=== PATIENT | female | born 1950 | race Hispanic/Latino ===

== ENCOUNTER 2016-07-27 19:43 | Emergency (ER) | payer MEDICARE, OTHER ==
--- NOTE | 2016-07-27 20:35 | RAD ---
PORTABLE CHEST: 07/27/16 HISTORY: Chest pain. The lung hernandez appear clear. Heart and mediastinum appear unremarkable. Vasculature is normal. IMPRESSION: No acute findings. POS: [facility]
[2016-07-27 20:54] LABS: Chloride 111 mmol/L (98-107)
[2016-07-27 21:05] LABS: Troponin I Less than 0.010 ng/mL (< 0.028)
[2016-07-27 21:07] LABS: ALT (SGPT) 42 U/L (0-55); AST (SGOT) 38 U/L (5-34); Alkaline Phosphatase 55 U/L (40-150); BUN (Urea Nitrogen) 13 mg/dL (9.8-20.1); Bilirubin, Total 0.5 mg/dL (0.2-1.2); CK (CPK) 54 U/L (29-168); Calc. Creatinine Clearance 0 mL/min (70-130); Calcium 9.3 mg/dL (7.8-10.44); Carbon Dioxide 23 mmol/L (23-31); Estimated GFR-MDRD 76; Globulin 2.9 g/dL (2.4-3.5); Protein, Total 6.7 g/dL (5.8-8.1)
[2016-07-27 21:10] LABS: Anion Gap 12 mmol/L (10-20)
[2016-07-27 21:12] LABS: #Eosinphils 0.4 thou/uL (0.0-0.7); #Lymphocytes 1.5 thou/uL (1.20-3.40); #Monocytes 0.4 thou/uL (0.11-0.59); #Neutrophils 1.2 thou/uL (1.40-6.50); %Eosinophils 9.9 % (0.0-10.0); %Lymphocytes 43.5 % (21.0-51.0); %Monocytes 10.5 % (0.0-10.0); Mean Platelet Volume 7.4 fL (7.4-10.4); Red Blood Cell (RBC) Count 3.95 mill/uL (4.20-5.40); White Blood Cell (WBC) Count 3.5 thou/uL (4.8-10.8)
== END 2016-07-27 22:16 | disposition short-term general hospital (02) ==
LOC: NAV ERS 19:43
DX: M79.662 Pain in left lower leg (principal); M79.661 Pain in right lower leg; R07.9 Chest pain, unspecified; R06.00 Dyspnea, unspecified; E78.5 Hyperlipidemia, unspecified; E78.00 Pure hypercholesterolemia, unspecified; I10 Essential (primary) hypertension; Z79.899 Other long term (current) drug therapy
CPT/HCPCS: 71010; 80053; 82553; 84484; 85025; 85379; 93005; 94760

== ENCOUNTER 2016-09-18 14:18 | Emergency (ER) | payer MEDICARE, OTHER ==
--- NOTE | 2016-09-18 15:25 | RAD ---
RIGHT HAND THREE VIEWS: History: Fell, injury to right hand. FINDINGS: Carpals appear intact. There is degenerative change at the first carpal metacarpal joint. The metaca rpals and phalanges appear intact. IMPRESSION: No acute fracture identified. POS: [facility]
--- NOTE | 2016-09-18 15:32 | RAD ---
RIGHT KNEE FOUR VIEWS: History: Slipped and fell with injury to right knee. Comparison: 09-24-14 FINDINGS: There are mild degenerative changes noted with minimal spurring from the condyles and patella. No fr acture or acute abnormality. No evidence of joint effusion. IMPRESSION: Mild degenerative changes are seen without significant change from the prior study. POS: [facility]
[2016-09-18] MEDS ORDERED: Ibuprofen 800 MG TAB ONE (15:35)
== END 2016-09-18 15:40 | disposition home or self-care (01) ==
LOC: NAV ERS 14:18
DX: S60.041A Contusion of right ring finger without damage to nail, initial encounter (principal); S80.01XA Contusion of right knee, initial encounter; I10 Essential (primary) hypertension; F41.9 Anxiety disorder, unspecified; Z87.891 Personal history of nicotine dependence; Z79.899 Other long term (current) drug therapy; E78.5 Hyperlipidemia, unspecified; W17.89XA Other fall from one level to another, initial encounter

== ENCOUNTER 2016-11-17 08:24 | Emergency (ER) | payer MEDICARE, OTHER ==
[2016-11-17] MEDS ORDERED: Acetaminophen 500 MG TAB ONE (08:52)
--- NOTE | 2016-11-17 09:40 | RAD ---
THREE VIEWS OF THE RIGHT HAND: DATE: 11/17/16. HISTORY: Pain in 3rd and 4th metacarpals. The patient caught hand in a mixer. COMPARISON: 09/18/16. There is no evidence of a fracture or dislocation. 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 There is minimal osteoarthritis involving the interphalangeal joints. IMPRESSION: No acute osseous abnormality of the right hand. POS: [facility]
== END 2016-11-17 09:22 | disposition home or self-care (01) ==
LOC: NAV ERS 08:24
DX: S61.411A Laceration without foreign body of right hand, initial encounter (principal); E78.5 Hyperlipidemia, unspecified; I10 Essential (primary) hypertension; F41.9 Anxiety disorder, unspecified; Z87.891 Personal history of nicotine dependence; Z79.899 Other long term (current) drug therapy; W45.8XXA Other foreign body or object entering through skin, initial encounter

== ENCOUNTER 2017-02-21 14:14 | Outpatient (CLI) | payer MEDICARE, OTHER ==
[2017-02-21 21:07] LABS: Bilirubin Negative (Negative); Blood, Urine Small (Negative); Clarity Clear (Clear); Glucose, Urine (Dipstick) Negative (Negative); Leukocyte Negative (Negative); Nitrite Negative (Negative); Protein, Urine (Dipstick) Negative (Neg-Trace); Urobilinogen 0.2 mg/dL (0.2-1.0); pH, Urine 6.5 (5.0-9.0)
[2017-02-21 22:02] LABS: RBC/HPF 0-3 HPF (0-3); Squamous Epithelial 0-3 HPF (0-3)
== END 2017-02-21 14:15 | disposition home or self-care (01) ==
LOC: NAVSJIPCSP 14:14
PROVIDERS: ATTEND Urology
DX: R31.9 Hematuria, unspecified (principal)
CPT/HCPCS: 81001; 87086

== ENCOUNTER 2017-02-22 16:24 | Emergency (ER) | payer MEDICARE, OTHER | END 2017-02-22 17:05 | disposition home or self-care (01) | LOC: NAV ERS 16:24 | DX: J20.9 Acute bronchitis, unspecified (principal); E78.5 Hyperlipidemia, unspecified; I10 Essential (primary) hypertension; F41.9 Anxiety disorder, unspecified; Z87.891 Personal history of nicotine dependence; Z79.899 Other long term (current) drug therapy | CPT/HCPCS: 93005 ==

== ENCOUNTER 2018-09-30 10:42 | Outpatient (CLI) | payer MEDICARE, OTHER ==
--- NOTE | 2018-09-30 10:57 | RAD ---
Exam: Chest 2 views HISTORY:COPD Comparison: None FINDINGS: Lungs: No masses or consolidation. Cardiac silhouette: Normal size Pulmonary vessels: Normal Pleural Spaces: Clear Pneumothorax: None Osseous abnormalities: None of acuity. IMPRESSION: No focal consolidation.
== END 2018-09-30 10:43 | disposition home or self-care (01) ==
LOC: NAV RAD 10:42
PROVIDERS: ATTEND Family Medicine
DX: J44.1 Chronic obstructive pulmonary disease with (acute) exacerbation (principal)
CPT/HCPCS: 71046

== ENCOUNTER 2018-10-04 02:29 | Emergency (ER) | payer MEDICARE, OTHER ==
[2018-10-04] MEDS ORDERED: Acetaminophen/Codeine 30-300mg Tablet ONE (02:51)
--- NOTE | 2018-10-04 08:28 | RAD ---
CHEST 2 VIEWS: INDICATION: Coughing and wheezing. COMPARISON: Prior days' exam dated 09/30/2018. FINDINGS: Lungs are clear. Heart size is normal. Osseous structures are unchanged. Mild wedging involving a mid to lower thoracic vertebra is stable. IMPRESSION: No acute cardiopulmonary abnormality. POS: [facility]
== END 2018-10-04 03:48 | disposition home or self-care (01) ==
LOC: NAV ERS 02:29
DX: J20.9 Acute bronchitis, unspecified (principal); E78.5 Hyperlipidemia, unspecified; M06.9 Rheumatoid arthritis, unspecified; F41.9 Anxiety disorder, unspecified; F32.9 Major depressive disorder, single episode, unspecified; Z79.899 Other long term (current) drug therapy; Z87.891 Personal history of nicotine dependence
CPT/HCPCS: 71046; 94640; 94760; J7620

== ENCOUNTER 2019-11-27 10:48 | Outpatient (CLI) | payer MEDICARE, OTHER ==
--- NOTE | 2019-11-27 12:28 | RAD ---
CERVICAL SPINE 7 VIEWS: Date: 11/27/2019 HISTORY: Neck pain. FINDINGS/IMPRESSION: Multilevel degenerative changes are present. No fracture, subluxation, or bony destruction is seen. T here is 2 mm retrolisthesis of C4 over C5 that is noted on the neutral and extension images. POS: [facility]
== END 2019-11-27 10:49 | disposition home or self-care (01) ==
LOC: NAV RAD 10:48
PROVIDERS: ATTEND Physician Assistant
DX: M54.2 Cervicalgia (principal); M47.812 Spondylosis without myelopathy or radiculopathy, cervical region; M43.12 Spondylolisthesis, cervical region
CPT/HCPCS: 72052

== ENCOUNTER 2021-02-11 14:37 | Outpatient (CLI) | payer MEDICARE, OTHER | END 2021-02-11 14:38 | disposition home or self-care (01) | LOC: NAV RAD 14:37 | PROVIDERS: ATTEND Internal Medicine Rheumatology | DX: M54.2 Cervicalgia (principal); M47.812 Spondylosis without myelopathy or radiculopathy, cervical region | CPT/HCPCS: 72052 ==

== ENCOUNTER 2021-04-11 14:58 | Emergency (ER) | payer MEDICARE, OTHER ==
[2021-04-11] MEDS ORDERED: Ketorolac Tromethamine 30 MG/ML VIAL ONE (15:31)
== END 2021-04-11 15:45 | disposition home or self-care (01) ==
LOC: NAV ERS 14:58
DX: M54.50 Low back pain, unspecified (principal); E78.5 Hyperlipidemia, unspecified; M06.9 Rheumatoid arthritis, unspecified; Z87.891 Personal history of nicotine dependence; J43.9 Emphysema, unspecified; I10 Essential (primary) hypertension; Z79.899 Other long term (current) drug therapy
CPT/HCPCS: 96372; 99283; J1885

== ENCOUNTER 2021-04-28 11:57 | Emergency (ER) | payer MEDICARE, OTHER ==
[2021-04-28] MEDS ORDERED: Aspirin Chewable 81 MG TAB ONE (12:27)
[2021-04-28] MEDS ORDERED: Nitroglycerin 2% Ointment 1 INCH/1 GM Packet ONE (12:27)
[2021-04-28 12:30] LABS: #Basophils 0.1 thou/uL (0.0-0.2); #Eosinphils 0.2 thou/uL (0.0-0.7); #Lymphocytes 1.8 thou/uL (1.20-3.40); #Monocytes 0.9 thou/uL (0.11-0.59); #Neutrophils 6.3 thou/uL (1.40-6.50); %Basophils 0.7 % (0.0-1.0); %Eosinophils 2.7 % (0.0-10.0); %Lymphocytes 19.4 % (21.0-51.0); %Monocytes 9.3 % (0.0-10.0); %Neutrophils 67.9 % (42.0-75.0); Hemoglobin 12.6 g/dL (12.0-16.0); Mean Corpuscular Hemoglobin 30.5 pg (27.0-31.0); Mean Corpuscular Volume 95.3 fL (78.0-98.0); Mean Platelet Volume 8.2 fL (7.4-10.4); Platelet Count 309 thou/uL (130-400); RBC Distribution Width 12.1 % (11.5-14.5); Red Blood Cell (RBC) Count 4.13 mill/uL (4.20-5.40); White Blood Cell (WBC) Count 9.3 thou/uL (4.8-10.8)
[2021-04-28 12:45] LABS: ALT (SGPT) 19 U/L (8-55); AST (SGOT) 22 U/L (5-34); Albumin 4.1 g/dL (3.4-4.8); Alkaline Phosphatase 104 U/L (40-110); Anion Gap 10 mmol/L (10-20); BUN (Urea Nitrogen) 10 mg/dL (9.8-20.1); Bilirubin, Total 0.7 mg/dL (0.2-1.2); Calc. Creatinine Clearance 0 mL/min (70-130); Calcium 9.7 mg/dL (7.8-10.44); Carbon Dioxide 28 mmol/L (23-31); Chloride 102 mmol/L (98-107); Globulin 2.4 g/dL (2.4-3.5); Glucose 81 mg/dL (80-115); Potassium 3.8 mmol/L (3.5-5.1); Protein, Total 6.5 g/dL (5.8-8.1); Sodium 136 mmol/L (136-145)
[2021-04-28] MEDS ORDERED: HYDROcodone/Acetaminophen 5/325 mg Tablet ONE (13:49)
[2021-04-28 14:35] LABS: SARS-CoV-2 NAA Rapid Test Not Detected (NotDetected)
== END 2021-04-28 16:20 | disposition short-term general hospital (02) ==
LOC: NAV ERS 11:57
DX: R07.9 Chest pain, unspecified (principal); M54.30 Sciatica, unspecified side; Z20.822 Contact with and (suspected) exposure to COVID-19; E78.5 Hyperlipidemia, unspecified; I10 Essential (primary) hypertension; Z87.891 Personal history of nicotine dependence; Z79.899 Other long term (current) drug therapy
CPT/HCPCS: 71045; 80053; 84484; 85025; 93005; U0002

== ENCOUNTER 2023-05-21 12:02 | Outpatient (CLI) | payer MEDICARE, OTHER | END 2023-05-21 12:03 | disposition home or self-care (01) | LOC: NAV RAD 12:02 | PROVIDERS: ATTEND Nurse Practitioner Family | DX: R50.9 Fever, unspecified (principal) | CPT/HCPCS: 71046 ==

== ENCOUNTER 2024-01-20 11:58 | Emergency (ER) | payer MEDICARE, OTHER | END 2024-01-20 12:38 | disposition home or self-care (01) | LOC: NAV ERS 11:58 | DX: L03.114 Cellulitis of left upper limb (principal); J30.9 Allergic rhinitis, unspecified; R09.82 Postnasal drip; E78.00 Pure hypercholesterolemia, unspecified; J43.9 Emphysema, unspecified; I10 Essential (primary) hypertension; Z87.891 Personal history of nicotine dependence; Z79.899 Other long term (current) drug therapy | CPT/HCPCS: 99283 ==

== ENCOUNTER 2024-04-27 09:23 | Emergency (ER) | payer MEDICARE, OTHER ==
[2024-04-27] MEDS ORDERED: Ipratropium/Albuterol 3 ML NEB ONE (09:51)
[2024-04-27] MEDS ORDERED: Azithromycin 250 MG TAB ONE (10:35)
== END 2024-04-27 11:06 | disposition home or self-care (01) ==
LOC: NAV ERS 09:23
DX: J44.1 Chronic obstructive pulmonary disease with (acute) exacerbation (principal); I10 Essential (primary) hypertension; Z87.891 Personal history of nicotine dependence
CPT/HCPCS: 71046; 87070; 87077; 87081; 87205; 87430; 94640; J7620